=== PATIENT | female | born 1980 | race Caucasian/White ===

== ENCOUNTER 2018-10-07 13:44 | Outpatient (CLI) | payer OTHER | END 2018-10-07 15:37 | disposition home or self-care (01) | LOC: MRI 13:44 | DX: N63.10 Unspecified lump in the right breast, unspecified quadrant (principal); N63.20 Unspecified lump in the left breast, unspecified quadrant; R92.2 Inconclusive mammogram; M54.5 Low back pain; M25.551 Pain in right hip; M25.552 Pain in left hip; M25.511 Pain in right shoulder; Z13.89 Encounter for screening for other disorder; M54.2 Cervicalgia | CPT/HCPCS: 72141 ==

== ENCOUNTER → 2018-11-28 | Outpatient (CLI) | payer OTHER | END | disposition home or self-care (01) | LOC: SONOGRAMA 12:53 | DX: N60.11 Diffuse cystic mastopathy of right breast (principal); N60.12 Diffuse cystic mastopathy of left breast ==

== ENCOUNTER 2019-02-14 11:09 | Outpatient (CLI) | payer OTHER | END 2019-02-14 17:00 | disposition home or self-care (01) | LOC: SONOGRAMA 11:09 → MAMO-SONO 14:15 → SONOGRAMA 17:00 | DX: R10.2 Pelvic and perineal pain (principal) ==

== ENCOUNTER 2022-10-19 14:03 | Outpatient (CLI) | payer OTHER | END 2022-10-19 15:15 | disposition home or self-care (01) | LOC: PRENATAL 14:03 | PROVIDERS: ATTEND Obstetrics & Gynecology Maternal & Fetal Medicine | DX: Z76.1 Encounter for health supervision and care of foundling (principal) ==